=== PATIENT | male | born 1995 | race American Indian/Alaskan Native ===

== ENCOUNTER 2016-08-23 14:34 | Emergency (ER) | payer SELFPAY ==
[2016-08-23 14:53] VITALS: BP 127/81
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
== END 2016-08-23 18:04 | disposition home or self-care (01) ==
LOC: ED 14:34
DX: S52.91XA Unspecified fracture of right forearm, initial encounter for closed fracture (principal); S51.831A Puncture wound without foreign body of right forearm, initial encounter; W34.00XA Accidental discharge from unspecified firearms or gun, initial encounter; Y93.9 Activity, unspecified; Y92.89 Other specified places as the place of occurrence of the external cause; Y99.9 Unspecified external cause status; F17.200 Nicotine dependence, unspecified, uncomplicated
CPT/HCPCS: 99283